=== PATIENT | male | born 1990 | race Caucasian/White ===

== ENCOUNTER 2017-11-08 15:36 | Emergency (ER) | payer OTHER ==
[2017-11-08 15:46] VITALS: RESP 18; TEMP 97.5
--- NOTE | 2017-11-08 17:15 | EDPHY ---
H & P Time Seen by Provider: 11/08/17 16:44 HPI/ROS: Chief complaint. Hydrofluoric acid exposure HPI. 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 Immediate irrigation with water prior to arrival. He did not have any oral or eye exposure. No inhalational exposure. He has no symptoms. No burning or tingling to the forearm. There is a slight linear redness on the right forearm. No other complaints. ROS Constitutional. no fever/chills, no weakness Eyes. no problems with vision ENT. no sore throat, no nasal drainage Cardiovascular. no chest pain Respiratory. no shortness of breath, no cough Abdominal. no abdominal pain, no nausea/vomiting, no diarrhea . no problems urinating MS. no calf pain/swelling, no neck/back pain, no joint pain Skin. Slight redness to right forearm Lymph. no swollen glands Neuro. no headache, no dizziness, no difficulty walking or with speech Past Medical/Surgical History: Healthy Social History: Single, nonsmoker, no alcohol Smoking Status: Never smoked Physical Exam: General Appearance: Alert well-developed male no distress vital signs stable Eyes: Pupils equal and round no pallor or injection. ENT, Mouth: Mucous membranes are moist. Respiratory: There are no retractions, lungs are clear to auscultation. Cardiovascular: Regular rate and rhythm. Gastrointestinal: Abdomen is soft and nontender, no masses, bowel sounds normal. Neurological: Awake and alert, sensory and motor exams grossly normal. Skin: Slight linear erythema without swelling or evidence of foreign body to the right flexor side of his forearm Musculoskeletal: Neck is supple nontender. Extremities symmetrical, full range of motion. Psychiatric: Patient is oriented X 3, there is no agitation. Constitutional: Initial Vital Signs Temperature (C) 36.4 C 11/08/17 15:41 Heart Rate 75 11/08/17 15:41 Respiratory Rate 18 11/08/17 15:41 Blood Pressure 128/52 H 11/08/17 15:41 O2 Sat (%) 95 11/08/17 15:41 O2 Delivery Mode Room Air Allergies/Adverse Reactions: No Known Allergies Allergy (Verified 03/15/16 18:58) Home Medications: Medication Instructions Recorded Dexamethasone [DEXAMETHASONE] 4 mg PO DAILY #3 03/15/16 Ibuprofen [Motrin (*)] 800 mg PO Q6-8PRN #30 tab 03/15/16 Medical Decision Making ED Course/Re-evaluation: Case # from Poison Control--[id number]. I consulted discussed the case with poison Control who recommends a calcium gluconate gel repeated every several hours until the burning ceases up to 2-3 days. I spoke to our pharmacy to have this made up. I have spoken to both poison Control and pharmacy again as poison Control apparently has a recipe for formulating the calcium gluconate gel Re-evaluation 5:20 p.m. and in stable. He and I discussed treatment plan including criteria for return importance of follow-up and further evaluation. He expresses understanding and agreement Apparently pharmacy and poison Control agreed on a 10% solution that will be saturated in to 4x4s. Patient is given sufficient medication to cover him for 3 2-3 days if necessary Differential Diagnosis: Hydrofluoric acid exposure. Patient currently without symptoms. Likely this is due to early treatment though symptoms apparently can be delayed. Patient is given sufficient medicine as antidote. Departure - Departure Disposition: Home, Routine, Self-Care Clinical Impression: Accidental exposure to hydrofluoric acid Condition: Good Instructions: Chemical Skin Burn (ED) Additional Instructions: apply calcium gluconate gel if having pain then cover with saran wrap. If pain returns in several hours wash the area and then reapply a gauze pad soaked in calcium gluconate solution. Poison Control says you may need to repeat this every 4-6 hours for up to 2-3 days. You only need to treat yourself if you are having pain. Return for trouble swallowing or breathing. Return for uncontrolled pain to the forearm. Recheck by workman's Comp tomorrow Referrals: NONE *PRIMARY CARE P,. [Primary Care Provider] - As per Instructions Work Comp Ref/Restrictions [Outside] - As per Instructions
[2017-11-08] MEDS ORDERED: CALCIUM GLUC 10% 1 GM/10 ML VIAL TP SCH (17:45)
[2017-11-08 18:13] VITALS: BP 127/69; PULSE 60; O2SAT 98
== END 2017-11-08 18:16 | disposition home or self-care (01) ==
DX: Z77.098 Contact with and (suspected) exposure to other hazardous, chiefly nonmedicinal, chemicals (principal)